=== PATIENT | female | born 1945 | race Caucasian/White ===

== ENCOUNTER 2022-05-05 15:31 | Outpatient (CLI) | payer MEDICARE, OTHER, SELFPAY ==
[2022-05-05 13:35] LABS: Cholesterol* 157 mg/dL (90-199); HDL Cholesterol* 54 mg/dL (>=50); LDL Cholesterol Calculated 91 mg/dL (<100); Triglycerides* 62 mg/dL (40-149)
== END 2022-05-05 15:32 | disposition home or self-care (01) ==
PROVIDERS: PCP Nurse Practitioner Family; Visit Provider Nurse Practitioner Family
DX: Z00.00 Encounter for general adult medical examination without abnormal findings (principal); Z13.6 Encounter for screening for cardiovascular disorders; I10 Essential (primary) hypertension
CPT/HCPCS: 36415; 80061

== ENCOUNTER 2022-05-15 10:48 | Outpatient (CLI) | payer MEDICARE, OTHER, SELFPAY ==
[2022-05-15 15:01] LABS: SARS PCR* Negative SARS-CoV-2 (Negative)
== END 2022-05-15 10:49 | disposition home or self-care (01) ==
LOC: KYNREF 10:49
PROVIDERS: PCP Nurse Practitioner Family; Visit Provider Nurse Practitioner Family
DX: Z20.822 Contact with and (suspected) exposure to COVID-19 (principal)
CPT/HCPCS: 87635

== ENCOUNTER 2022-05-16 11:15 | Outpatient (CLI) | payer MEDICARE, OTHER, SELFPAY | END 2022-05-16 11:16 | disposition home or self-care (01) | PROVIDERS: PCP Nurse Practitioner Family; Visit Provider Internal Medicine | DX: Z12.11 Encounter for screening for malignant neoplasm of colon (principal); K63.5 Polyp of colon | CPT/HCPCS: 45385; 88305; J2250; J3010 ==

== ENCOUNTER 2023-06-11 13:30 | Outpatient (CLI) | payer MEDICARE, OTHER, SELFPAY | END 2023-06-11 13:31 | disposition home or self-care (01) | PROVIDERS: PCP Nurse Practitioner Family; Visit Provider Nurse Practitioner Family | DX: I10 Essential (primary) hypertension (principal); R42 Dizziness and giddiness; R73.01 Impaired fasting glucose; Z13.29 Encounter for screening for other suspected endocrine disorder | CPT/HCPCS: 80053; 84443 ==

== ENCOUNTER 2023-11-05 14:38 | Outpatient (CLI) | payer MEDICARE, OTHER, SELFPAY | END 2023-11-05 14:39 | disposition home or self-care (01) | PROVIDERS: PCP Nurse Practitioner Family; Visit Provider Nurse Practitioner Family | DX: R00.0 Tachycardia, unspecified (principal); R53.83 Other fatigue; I10 Essential (primary) hypertension | CPT/HCPCS: 80048; 83735; 84443; 85025 ==

== ENCOUNTER 2023-11-23 13:55 | Outpatient (CLI) | payer MEDICARE, OTHER, SELFPAY | END 2023-11-23 13:56 | disposition home or self-care (01) | LOC: RAD 14:01 | PROVIDERS: PCP Nurse Practitioner Family; Visit Provider Nurse Practitioner Family | DX: I10 Essential (primary) hypertension (principal); I51.7 Cardiomegaly; R53.83 Other fatigue; I35.1 Nonrheumatic aortic (valve) insufficiency; I34.0 Nonrheumatic mitral (valve) insufficiency; R00.0 Tachycardia, unspecified | CPT/HCPCS: 93225; 93226; 93306 ==

== ENCOUNTER 2024-03-15 11:16 | Outpatient (CLI) | payer MEDICARE, OTHER, SELFPAY ==
--- OUTSIDE RECORDS SUMMARY | 2024-03-15 11:20 | XMS_ITS | Clinical Summary ---
Author Organization [facility] Address [place], [place] [address] Care Team Providers Care Blueprint Tracer Name Role Phone Fawn Cannon NP Primary Care Provider [phone] Encounters Date Type Department Care Team Description 12/24/2023 3:00 PM CDT Office Visit [facility] & [address] [address] Ender Diehl MD from Last 3 Months Social History Tobacco Use Types Packs/Day Years Used Date Smoking Tobacco: Never Assessed Social Connections Answer Date Recorded Frequency of Communication with Friends and Fami ly Not on file 01/09/2024 Sex and Gender Information Value Date Recorded Sex Assigned at Not on file Gender Identity Not on file Sexual Orientation Not on file Plan of Treatment Health Maintenance Due Date Last Done Comments Tdap 11/12/1958 Depression screening for age 12+ 1959 BMI (ht and wt on same day) for age 18+ 11/12/1965 Hepatitis C screening for ag e 18-79 11/12/1965 Tetanus booster 1967 Zoster (shingles) series for age 50+ (1 of 2) 11/12/1997 DEXA/DXA scan for age 65+ 11/12/2012 Pneumococcal series for age 65+ (1 of 1 - PCV) 11/12/2012 Influenza for age 65+ 04/10/2024 COVID-19 vaccine series Completed 11/24/19 24, 05/23/2023, 05/22/2022, Additional history exists Care Teams Blueprint Tracer Relationship Specialty Start Date End Date Fawn Cannon BUSINESS TECHNOLOGY ANALYST [address] [place] [id number] PCP - General Emergency Medicine 12/17/23
--- OUTSIDE RECORDS SUMMARY | 2024-03-15 11:20 | XMS_ITS | Continuity of Care Document ---
Author Name [facility] Organization [facility] Care Team Providers Care Etl Application Developer Name Role Phone [facility] Unavailable Unavailable Medications Combined list of outpatient medications from Department of Defense and Veterans Affairs facilities.Medications provided include 1) outpatient medications from the last 15 months, and 2) patient-reported medications. Medication Details Route Status Patient Instructions Prescription Expires Prescription Number Last Dispense Date Ordering Provider Order Date Order Qty Source HYDROCHLORO THIAZIDE (Tissue Regenix) 1000 TABLET in 1 BOTTLE, PLASTIC Active [id number] 4 2023 90 Pharmac y Data Transac tion Service Facilit y HYDROCHLORO THIAZIDE (Tissue Regenix) 1000 TABLET in 1 BOTTLE, PLASTIC Active [id number] 4 2023 90 Pharmac y Data Transac tion Service Facilit y SPIKEVAX [id number] (COVID vacc 2022-24 (12 yrs and up) XBB.1.5 (andusomera n)/PF), 50 MCG/0.5, VIAL, INTRAMUSC, MODERNA US, INC, .5 ml VIAL Active [id number] 4 2023 0.5 Pharmac y Data Transac tion Service Facilit y Immunizations Combined list of available immunizations from the Department of Defense and Veterans Affairs facilities. Immunization Series Date Given Administered By Site Reaction Lot Number CVX Code Drug Scanner Operator Status Comments Source Tdap 2020 LORENA, () Not Given Tdap [facility] Influenza vaccine, quadrivalent, adjuvanted 2020 LORENA, () Not Given Influenza vaccine, quadrival ent, adjuvante d DoD zoster recombinant 2020 LORENA, () Not Given zoster recombina nt [facility] Influenza, injectable, MDCK, preservative free, quadrivalent 2019 LORENA, () Not Given Influenza , injectabl e, MDCK, preservat lucila free, quadrival ent [facility] zoster recombinant 2019 LORENA, () Not Given zoster recombina nt DoD influenza, trivalent, adjuvanted 2018 LORENA, () Not Given influenza , trivalent , adjuvante d DoD zoster live 2013 LUX LANCE () Not Given zoster live DoD Social History Combined list of available smoking, tobacco, and other social history from Department of Defense and Veterans Affairs facilities. Social History Type Response Date Comment Sour e This section is an empty social history section. DoD
--- NOTE | 2024-03-15 11:30 | CRLHL7_ITS ---
For Patients: As a result of the Century Cures Act, medical imaging exams and procedure reports are released immediately into your electronic medical record. You may view this report before your referring provider. If you have questions, please contact your health care provider. BILATERAL SCREENING MAMMOGRAM WITH COMPUTER-AIDED DETECTION AND TOMOSYNTHESIS TECHNIQUE: CC and MLO views were obtained. These mammographic images have been obtained using full-field digital technique. These mammographic images were interpreted with the benefit of computer-aided detection. Breast tomosynthesis was used in this interpretation. COMPARISON FILM: 05/20/21, 03/06/20, 03/02/19. FINDINGS: There are scattered areas of fibroglandular density. IMPRESSION: There is no radiographic evidence for malignancy. ASSESSMENT: BI-RADS Category 2: Benign RECOMMENDATION: Routine screening mammogram in 1 year. A lay language report of this examination will be provided to the patient. MARK MUNGUIA M.D. Diagnostic Radiologist [email or web address] Transcribed: 3:[address]/Dictated by: Mark Munguia MD @ 03/15/2024 12:25:00 PM (Electronically Signed)
== END 2024-03-15 11:17 | disposition home or self-care (01) ==
LOC: MAMMO 11:17
PROVIDERS: PCP Nurse Practitioner Family; Visit Provider Nurse Practitioner Family
DX: Z12.31 Encounter for screening mammogram for malignant neoplasm of breast (principal)
CPT/HCPCS: 77063; 77067

== ENCOUNTER 2024-08-19 09:01 | Outpatient (CLI) | payer MEDICARE, OTHER, SELFPAY | END 2024-08-19 09:02 | disposition home or self-care (01) | PROVIDERS: PCP Nurse Practitioner Family; Visit Provider Nurse Practitioner Family | DX: I10 Essential (primary) hypertension (principal) | CPT/HCPCS: 80053; 80061; 85025 ==

== ENCOUNTER 2025-06-12 09:55 | Outpatient (CLI) | payer MEDICARE, OTHER, SELFPAY ==
--- NOTE | 2025-06-12 10:15 | CRLHL7_ITS ---
For Patients: As a result of the Century Cures Act, medical imaging exams and procedure reports are released immediately into your electronic medical record. You may view this report before your referring provider. If you have questions, please contact your health care provider. INDICATION: BILATERAL SCREENING MAMMOGRAM, ASYMPTOMATIC 79 Y/O FEMALE COMPARISON: 03/15/2024, 12/24/2022, 05/20/2021 TECHNIQUE: Digital mammogram in CC and MLO projections including computer-aided detection (CAD) and tomosynthesis. BREAST COMPOSITION: There are scattered areas of fibroglandular density. FINDINGS: No suspicious findings. ASSESSMENT: BI-RADS 1 Negative RECOMMENDATION: Annual screening mammogram. A lay language report of this examination will be provided to the patient. Dictated by: Mark Dong MD @ 06/12/2025 11:06:29 (Electronically Signed)
== END 2025-06-12 09:56 | disposition home or self-care (01) ==
LOC: MAMMO 09:57
PROVIDERS: PCP Nurse Practitioner Family; Visit Provider Nurse Practitioner Family
DX: Z12.31 Encounter for screening mammogram for malignant neoplasm of breast (principal)
CPT/HCPCS: 77063; 77067